=== PATIENT | female | born 1945 | race Caucasian/White ===

== ENCOUNTER 2018-08-17 21:09 | Emergency (ER) | payer MEDICARE, OTHER ==
[2018-08-17 21:16] VITALS: RESP 18
[2018-08-17] MEDS ORDERED: ACETAMINOPHEN TAB 325 MG TAB PO STA (21:29)
[2018-08-17] MEDS ORDERED: SODIUM CHLORIDE 0.9% 1,000 ML IV STA (21:29)
--- NOTE | 2018-08-17 21:34 | ED ---
General Adult HPI - General Source: patient, RN notes reviewed Mode of arrival: ambulatory Limitations: no limitations <Kip Adrian - Last Filed: 08/17/18 23:07> <Maria Dolores Dickerson - Last Filed: 08/18/18 03:14> - General Chief complaint: Urogenital Stated complaint: fever/poss UTI Time Seen by Provider: 08/17/18 21:19 - History of Present Illness Initial comments: This is a 73-year-old female presents emergency Department chief complaint of fever, possible urinary tract infection. Patient states that she has developed a fever today hasn't felt they states that she's feels rundown, tired. Patient states that she's noticed that she has some urinary dysuria. Patient denies any flank pain, cough or cold symptoms. Denies any sore throat, ear pain, headache, neck stiffness. She has not taken any recent Tylenol or Motrin. She denies any sick contacts. (Kip Adrian) - Related Data Home Medications Medication Instructions Recorded Confirmed Synthroid Unknown Dose 1 tab PO DAILY 08/17/18 08/17/18 Previous Rx's Medication Instructions Recorded Fluconazole [Diflucan] 150 mg PO ONCE #2 tab 08/17/18 Sulfamethox-Tmp 800-160Mg [Bactrim 1 each PO Q12HR #14 tab 08/17/18 Ds] Allergies Allergy/AdvReac Type Severity Reaction Status Date / Time No Known Allergies Allergy Verified 08/17/18 22:02 Review of Systems ROS Other: All systems not noted in ROS Statement are negative. <Kip Adrian - Last Filed: 08/17/18 23:07> ROS Other: All systems not noted in ROS Statement are negative. <Maria Dolores Dickerson - Last Filed: 08/18/18 03:14> ROS Statement: Those systems with pertinent positive or pertinent negative responses have been documented in the HPI. Past Medical History Past Medical History: No Reported History Additional Past Medical History / Comment(s): hypoglycemia. hypothyroidism History of Any Multi-Drug Resistant Organisms: None Reported Past Surgical History: No Surgical Hx Reported Past Psychological History: No Psychological Hx Reported Smoking Status: Never smoker Past Alcohol Use History: Daily Past Drug Use History: None Reported <Kip Adrian - Last Filed: 08/17/18 23:07> General Exam Limitations: no limitations General appearance: alert, in no apparent distress Head exam: Present: atraumatic, normocephalic, normal inspection Eye exam: Present: normal appearance, PERRL, EOMI. Absent: scleral icterus, conjunctival injection, periorbital swelling ENT exam: Present: normal exam, normal oropharynx, mucous membranes moist Neck exam: Present: normal inspection, full ROM. Absent: tenderness, meningismus, lymphadenopathy Respiratory exam: Present: normal lung sounds bilaterally. Absent: respiratory distress, wheezes, rales, rhonchi, stridor Cardiovascular Exam: Present: regular rate, normal rhythm, normal heart sounds. Absent: systolic murmur, diastolic murmur, rubs, gallop, clicks GI/Abdominal exam: Present: soft, normal bowel sounds. Absent: distended, tenderness, guarding, rebound, rigid Back exam: Absent: CVA tenderness (R), CVA tenderness (L) Skin exam: Present: warm, dry, intact, normal color. Absent: rash <Kip Adrian - Last Filed: 08/17/18 23:07> Vital Signs 08/17/18 08/17/18 08/17/18 21:12 22:34 23:14 Temperature 100.3 F H 99.3 F 98.8 F Pulse Rate 75 Respiratory 18 Rate Blood Pressure 136/60 O2 Sat by Pulse 97 Oximetry 08/17/18 23:59 Temperature 100.3 F H Pulse Rate 55 L Respiratory 18 Rate Blood Pressure 111/52 O2 Sat by Pulse 95 Oximetry Medical Decision Making - Lab Data Result diagrams: 08/17/18 21:44 08/17/18 21:44 <Kip Adrian - Last Filed: 08/17/18 23:07> - Lab Data Result diagrams: 08/17/18 21:44 08/17/18 21:44 <Maria Dolores Dickerson - Last Filed: 08/18/18 03:14> - Medical Decision Making 73-year-old female presented for fever, dysuria. Patient had lab work, urinalysis. Patient does have noted WBCs and RBCs noted on urinalysis. Patient 's laboratory unremarkable otherwise. Patient we given Rocephin emergency department. Patient we discharged on Bactrim. She is advised take Tylenol and Motrin as directed for her fever and return for any worsening symptoms. Patient does state that she feels improved after IV fluids, Tylenol. (Kip Adrian) I was available for consultation in the emergency department. The history and physical exam were done by the midlevel provider. I was consulted for this patient's care. I reviewed the case with the midlevel provider and based on their presentation of the patient, I agree with the assessment, medical decision making and plan of care as documented. (Maria Dolores Dickerson) - Lab Data Lab Results 08/17/18 08/17/18 08/17/18 Range/Units 21:30 21:44 21:44 WBC 6.3 (3.8-10.6) k/uL RBC 4.45 (3.80-5.40) m/uL Hgb 14.0 (11.4-16.0) gm/dL Hct 41.1 (34.0-46.0) % MCV 92.5 (80.0-100.0) fL MCH 31.4 (25.0-35.0) pg MCHC 34.0 (31.0-37.0) g/dL RDW 12.4 (11.5-15.5) % Plt Count 222 (150-450) k/uL Neutrophils % 66 % Lymphocytes % 23 % Monocytes % 9 % Eosinophils % 1 % Basophils % 1 % Neutrophils # 4.2 (1.3-7.7) k/uL Lymphocytes # 1.4 (1.0-4.8) k/uL Monocytes # 0.5 (0-1.0) k/uL Eosinophils # 0.0 (0-0.7) k/uL Basophils # 0.0 (0-0.2) k/uL Sodium 138 (137-145) mmol/L Potassium 4.6 (3.5-5.1) mmol/L Chloride 101 (98-107) mmol/L Carbon Dioxide 28 (22-30) mmol/L Anion Gap 9 mmol/L BUN 19 H (7-17) mg/dL Creatinine 0.84 (0.52-1.04) mg/dL Est GFR (CKD-EPI)AfAm 79 (>60 ml/min/1.73 sqM) Est GFR (CKD-EPI)NonAf 68 (>60 ml/min/1.73 sqM) Glucose 104 H (74-99) mg/dL Plasma Lactic Acid Vazquez (0.7-2.0) mmol/L Calcium 9.1 (8.4-10.2) mg/dL Total Bilirubin 0.3 (0.2-1.3) mg/dL AST 43 H (14-36) U/L ALT 37 (9-52) U/L Alkaline Phosphatase 72 (38-126) U/L Total Protein 6.9 (6.3-8.2) g/dL Albumin 4.1 (3.5-5.0) g/dL Amylase 72 (30-110) U/L Lipase 293 (23-300) U/L Urine Color Yellow Urine Appearance Clear (Clear) Urine pH 5.5 (5.0-8.0) Ur Specific [place] 1.018 (1.001-1.035) Urine Protein 1+ H (Negative) Urine Glucose (UA) Negative (Negative) Urine Ketones Negative (Negative) Urine Blood Moderate H (Negative) Urine Nitrite Negative (Negative) Urine Bilirubin Negative (Negative) Urine Urobilinogen <2.0 (<2.0) mg/dL Ur Leukocyte Esterase Small H (Negative) Urine RBC 19 H (0-5) /hpf Urine WBC 16 H (0-5) /hpf Ur Squamous Epith Cells <1 (0-4) /hpf Urine Mucus Rare H (None) /hpf 08/17/18 Range/Units 21:44 WBC (3.8-10.6) k/uL RBC (3.80-5.40) m/uL Hgb (11.4-16.0) gm/dL Hct (34.0-46.0) % MCV (80.0-100.0) fL MCH (25.0-35.0) pg MCHC (31.0-37.0) g/dL RDW (11.5-15.5) % Plt Count (150-450) k/uL Neutrophils % % Lymphocytes % % Monocytes % % Eosinophils % % Basophils % % Neutrophils # (1.3-7.7) k/uL Lymphocytes # (1.0-4.8) k/uL Monocytes # (0-1.0) k/uL Eosinophils # (0-0.7) k/uL Basophils # (0-0.2) k/uL Sodium (137-145) mmol/L Potassium (3.5-5.1) mmol/L Chloride (98-107) mmol/L Carbon Dioxide (22-30) mmol/L Anion Gap mmol/L BUN (7-17) mg/dL Creatinine (0.52-1.04) mg/dL Est GFR (CKD-EPI)AfAm (>60 ml/min/1.73 sqM) Est GFR (CKD-EPI)NonAf (>60 ml/min/1.73 sqM) Glucose (74-99) mg/dL Plasma Lactic Acid Vazquez 0.9 (0.7-2.0) mmol/L Calcium (8.4-10.2) mg/dL Total Bilirubin (0.2-1.3) mg/dL AST (14-36) U/L ALT (9-52) U/L Alkaline Phosphatase (38-126) U/L Total Protein (6.3-8.2) g/dL Albumin (3.5-5.0) g/dL Amylase (30-110) U/L Lipase (23-300) U/L Urine Color Urine Appearance (Clear) Urine pH (5.0-8.0) Ur Specific [place] (1.001-1.035) Urine Protein (Negative) Urine Glucose (UA) (Negative) Urine Ketones (Negative) Urine Blood (Negative) Urine Nitrite (Negative) Urine Bilirubin (Negative) Urine Urobilinogen (<2.0) mg/dL Ur Leukocyte Esterase (Negative) Urine RBC (0-5) /hpf Urine WBC (0-5) /hpf Ur Squamous Epith Cells (0-4) /hpf Urine Mucus (None) /hpf Disposition Is patient prescribed a controlled substance at d/c from ED?: No Time of Disposition: 23:09 <Kip Adrian - Last Filed: 08/17/18 23:07> <Maria Dolores Dickerson - Last Filed: 08/18/18 03:14> Clinical Impression: Urinary tract infection Disposition: HOME SELF-CARE Condition: Stable Instructions: Urinary Tract Infection in Women (ED) Additional Instructions: Please return to the Emergency Department if symptoms worsen or any other concerns. Prescriptions: Fluconazole [Diflucan] 150 mg PO ONCE #2 tab Sulfamethox-Tmp 800-160Mg [Bactrim Ds] 1 each PO Q12HR #14 tab Referrals: Nonstaff,Physician [Primary Care Provider] - 1-2 days
[2018-08-17 22:40] LABS: Basophils % (A) 1 %; Eosinophils % (A) 1 %; HCT 41.1 % (34.0-46.0); Lymphocytes # (A) 1.4 k/uL (1.0-4.8); Lymphocytes % (A) 23 %; MCH 31.4 pg (25.0-35.0); MCV 92.5 fL (80.0-100.0); Mean Platelet Volume 7.4; Monocytes # (A) 0.5 k/uL (0-1.0); Monocytes % (A) 9 %; Neutrophils # (A) 4.2 k/uL (1.3-7.7); Neutrophils % (A) 66 %; Platelet Count 222 k/uL (150-450); RBC 4.45 m/uL (3.80-5.40); RDW 12.4 % (11.5-15.5); WBC 6.3 k/uL (3.8-10.6)
[2018-08-17 22:46] LABS: Appearance,Urine Clear (Clear); Bilirubin,Urine Negative (Negative); Blood,Urine Moderate (Negative); Color,Urine Yellow; Glucose,Urine (UA) Negative (Negative); Ketones,Urine Negative (Negative); Leukocyte Esterase,Urine Small (Negative); Mucus,Urine Rare /hpf; Nitrite,Urine Negative (Negative); PH, Urine 5.5 (5.0-8.0); Protein,Urine 1+ (Negative); RBC,Urine 19 /hpf (0-5); Specific Gravity,Urine 1.018 (1.001-1.035); Squamous Epithelial Cell,Urine <1 /hpf (0-4); Urobilinogen,Urine <2.0 mg/dL (<2.0); WBC,Urine 16 /hpf (0-5)
[2018-08-17 22:53] LABS: Albumin 4.1 g/dL (3.5-5.0); Calcium 9.1 mg/dL (8.4-10.2); Potassium 4.6 mmol/L (3.5-5.1); Total Bilirubin 0.3 mg/dL (0.2-1.3); Total Protein 6.9 g/dL (6.3-8.2)
[2018-08-18 00:03] VITALS: BP 111/52; PULSE 55; TEMP 100.3
[2018-08-18] MEDS ORDERED: IBUPROFEN 600 MG TAB PO STA (00:04)
== END 2018-08-18 00:08 | disposition home or self-care (01) ==
LOC: EC 21:09
DX: N39.0 Urinary tract infection, site not specified (principal); E03.9 Hypothyroidism, unspecified; Z79.899 Other long term (current) drug therapy
CPT/HCPCS: 36415; 80053; 82150; 83605; 83690; 85025; 81001; 87040; 87086; 99284; 96365; 96361; J0696